=== PATIENT | female | born 1975 | race Caucasian/White ===

== ENCOUNTER 2017-09-30 10:39 | Emergency (ER) | payer MEDICAID, OTHER ==
[~2017-09-30] VITALS: Ht 160 cm; Wt 92.5 kg
[~2017-09-30 10:39] MED LIST: GLU500 PO; LISI10TA2 PO; ORE25 PO
[2017-09-30 10:40] VITALS: BP 131/87
[2017-09-30] MEDS ORDERED: ELA25 PO (10:45)
[2017-09-30] MEDS ORDERED: SUMA100T1 PO (10:45)
[2017-09-30] MEDS ORDERED: TOP25 PO (10:45)
[2017-09-30] MEDS: METOCLOPRAMIDE 10 MG/2 ML INJ VIAL IM ONE (12:28)
[2017-09-30] MEDS: KETOROLAC 30 MG/ML VIAL IM ONE (12:28)
[2017-09-30 12:42] LABS: BILIRUBIN,URINE NEGATIVE (NEGATIVE); BLOOD, URINE NEGATIVE (NEGATIVE); COLOR,URINE YELLOW (YELLOW); LEUKOCYTE ESTERASE ,URINE NEGATIVE (NEGATIVE); NITRITE, URINE NEGATIVE (NEGATIVE); UGLUCOSE NEGATIVE (NEGATIVE)
[2017-09-30 12:46] LABS: APPEARANCE,URINE CLOUDY (CLEAR)
[2017-09-30 13:04] LABS: RBC,URINE NONE SEEN /HPF (0-5); WBC,URINE NONE SEEN /HPF (0-5)
[2017-09-30 13:06] VITALS: BP 124/81
== END 2017-09-30 13:04 | disposition home or self-care (01) ==
LOC: MED 10:39
DX: G43.909 Migraine, unspecified, not intractable, without status migrainosus (principal); N60.12 Diffuse cystic mastopathy of left breast; J45.909 Unspecified asthma, uncomplicated; E11.9 Type 2 diabetes mellitus without complications; I10 Essential (primary) hypertension; Z90.49 Acquired absence of other specified parts of digestive tract; Z79.899 Other long term (current) drug therapy
CPT/HCPCS: 81001; 81025; 96372; 99284; J1885; J2765

== ENCOUNTER 2021-03-28 05:10 | Day surgery (SDC) | payer OTHER, SELFPAY ==
[~2021-03-28] VITALS: Ht 160 cm; Wt 109.8 kg
[~2021-03-28 05:10] MED LIST changes: +AMIT25TA40 PO; +SUMA100T1 PO; +TOP25 PO
[2021-03-28] MEDS ORDERED: DESFLURANE 240 ML BTL INH ONE (08:00)
[2021-03-28] MEDS ORDERED: fentaNYL citrate 0.05 MG/ML VIAL ONE (08:08)
[2021-03-28] MEDS ORDERED: KETOROLAC 30 MG/ML VIAL ONE (08:08)
[2021-03-28] MEDS ORDERED: ONDANSETRON 4 MG/2 ML VIAL ONE (08:08)
[2021-03-28] MEDS ORDERED: PROPOFOL 200 MG/20 ML VIAL IV ONE (08:08)
[2021-03-28] MEDS ORDERED: HYDROmorphone 1 MG/ML AMP IVP PRN (08:50)
== END 2021-03-28 09:45 | disposition home or self-care (01) ==
LOC: MDS 05:10 → MMU 05:10 → MDS 09:45
PROVIDERS: ATTEND Obstetrics & Gynecology
DX: N92.0 Excessive and frequent menstruation with regular cycle (principal); I10 Essential (primary) hypertension; E11.9 Type 2 diabetes mellitus without complications; E78.00 Pure hypercholesterolemia, unspecified; Z96.642 Presence of left artificial hip joint; E66.9 Obesity, unspecified; Z79.84 Long term (current) use of oral hypoglycemic drugs; Z79.899 Other long term (current) drug therapy; Z20.822 Contact with and (suspected) exposure to COVID-19
CPT/HCPCS: 36415; 58563; 82948; 86886; 86900; 86901; 87426; 88305; 93005; J1885; J2405; J2704; J3010

== ENCOUNTER 2021-08-09 15:42 | Emergency (ER) | payer OTHER, SELFPAY ==
[~2021-08-09] VITALS: Ht 162.6 cm; Wt 105.7 kg
[2021-08-09 15:45] VITALS: BP 155/121
[2021-08-09] MEDS ORDERED: KETOROLAC 30 MG/ML VIAL IM ONE (16:20)
[2021-08-09] MEDS ORDERED: HYDROcodone/APAP 10/325 MG 1 TAB TAB PO ONE (16:20)
[2021-08-09] MEDS ORDERED: HYDROmorphone PFS 2 MG/ML SYR IM ONE (17:15)
[2021-08-09] MEDS ORDERED: HYDR-5191 PO (18:30)
[2021-08-09] MEDS ORDERED: IBUP-2213 PO (18:31)
[2021-08-09 18:49] VITALS: BP 155/121
== END 2021-08-09 18:49 | disposition home or self-care (01) ==
LOC: MED 15:42
DX: M25.552 Pain in left hip (principal); G89.29 Other chronic pain; J45.909 Unspecified asthma, uncomplicated; E11.9 Type 2 diabetes mellitus without complications; I10 Essential (primary) hypertension; Z98.890 Other specified postprocedural states; Z79.84 Long term (current) use of oral hypoglycemic drugs; Z79.899 Other long term (current) drug therapy
CPT/HCPCS: 73502; 73552; 73562; 96372; 99284; J1170; J1885

== ENCOUNTER 2021-08-13 10:03 | Emergency (ER) | payer OTHER, SELFPAY ==
[~2021-08-13] VITALS: Ht 160 cm; Wt 107.6 kg
[~2021-08-13 10:03] MED LIST changes: +HYDR-5191 PO; +IBUP-2213 PO
[2021-08-13 10:15] VITALS: BP 156/99
--- NOTE | 2021-08-13 10:18 | NUR ---
pt ambulated to room 1
--- NOTE | 2021-08-13 10:36 | NUR ---
DR. BIRMINGHAM BEDSIDE EVALUATING PT
--- NOTE | 2021-08-13 10:40 | NUR ---
45Y FEMALE BIB SELF DUE TO COLD SYMPTOMS. PER PATIENT SHE STARTED TO EXPERINCE A SORE THROAT AND WET COUGH AROUND 0400 THIS AM. PT STATED SORE THROAT IS 8/10 CURRENTLY. PT DENIES ANY CP, SOB, FEVER/CHILLS, N/V. PT A&OX4. NO SIGNS OF DISTRESS NOTED. BREATH SOUNDS CLEAR PMH: ASTHMA, DM, HTN NKA
--- NOTE | 2021-08-13 10:46 | NUR ---
AGUS BALTAZAR COLLECTED AND HANDED TO [facility] BEDSIDE
--- NOTE | 2021-08-13 11:28 | NUR ---
PT PROVIDED WITH JUICE AND CRACKERS BEDSIDE
--- NOTE | 2021-08-13 12:14 | NUR ---
Patient discharged with v/s stable. Written and verbal after care instructions given and explained. Patient verbalized understanding. Ambulatory with steady gait. All questions addressed prior to discharge. Advised to follow up with PMD.
== END 2021-08-13 12:14 | disposition home or self-care (01) ==
LOC: MED 10:03
DX: B34.9 Viral infection, unspecified (principal); Z20.822 Contact with and (suspected) exposure to COVID-19; I51.9 Heart disease, unspecified; J44.9 Chronic obstructive pulmonary disease, unspecified; E11.9 Type 2 diabetes mellitus without complications; E78.00 Pure hypercholesterolemia, unspecified
CPT/HCPCS: 99283

== ENCOUNTER 2021-12-18 09:49 | Emergency (ER) | payer OTHER ==
[~2021-12-18] VITALS: Ht 165.1 cm; Wt 104.9 kg
[2021-12-18 09:55] VITALS: BP 196/94
--- NOTE | 2021-12-18 10:07 | NUR ---
PT AMB TO BED 2.
--- NOTE | 2021-12-18 10:48 | NUR ---
BIB C/O [facility] [facility] [employer] EARS & C/O LEFT EAR PAIN S/P SWIMMING AT HER HOUSE'S POOL X 4 DAYS. BP 186/94, BLOOD SUGAR 220 AT THIS TIME. PMH: DM, HTN
--- NOTE | 2021-12-18 10:48 | NUR ---
DR. FARRIS AT PT BEDSIDE FOR FURTHER EVALUATION.
[2021-12-18] MEDS ORDERED: HYDROcodone/APAP 5/325 MG 1 TAB TAB PO ONE (10:50)
[2021-12-18] MEDS ORDERED: AMOX-1230 PO (11:05)
[2021-12-18] MEDS ORDERED: OFLO5SOL27 LEFT EAR (11:05)
[2021-12-18] MEDS ORDERED: IBUP-2213 PO (11:08)
[2021-12-18 11:20] VITALS: BP 176/96
--- NOTE | 2021-12-18 11:20 | NUR ---
Patient discharged with v/s stable. Written and verbal after care instructions given and explained. Patient alert, oriented and verbalized understanding of instructions. Ambulatory with steady gait. All questions addressed prior to discharge. ID band removed. Patient advised to follow up with PMD. Rx of FLOXIN OT AMOX given. Patient educated on indication of medication including possible reaction and side effects. Opportunity to ask questions provided and answered.
--- NOTE | 2021-12-18 11:21 | NUR ---
Chart checked and completed. The patient's care was reviewed and supervised by Maria Menjivar RN.
== END 2021-12-18 11:20 | disposition home or self-care (01) ==
LOC: MED 09:49
DX: H66.91 Otitis media, unspecified, right ear (principal); H60.91 Unspecified otitis externa, right ear; H72.91 Unspecified perforation of tympanic membrane, right ear; J45.909 Unspecified asthma, uncomplicated; E11.9 Type 2 diabetes mellitus without complications; I10 Essential (primary) hypertension; Z79.84 Long term (current) use of oral hypoglycemic drugs; Z79.899 Other long term (current) drug therapy
CPT/HCPCS: 99283

== ENCOUNTER 2021-12-20 10:14 | Emergency (ER) | payer OTHER ==
[~2021-12-20] VITALS: Ht 165.1 cm; Wt 106.3 kg
[~2021-12-20 10:14] MED LIST changes: +AMOX-1230 PO; +OFLO5SOL27 LEFT EAR
[2021-12-20 10:49] VITALS: BP 176/103
[2021-12-20] MEDS ORDERED: ACET-8386 PO (12:59)
--- NOTE | 2021-12-20 14:51 | NUR ---
PT UP FOR DC, LEFT WITHOUT PAPERWORK. RX OF NORCO SENT TO PHARMACY.
== END 2021-12-20 14:51 | disposition home or self-care (01) ==
LOC: MED 10:14
DX: H60.92 Unspecified otitis externa, left ear (principal); J45.909 Unspecified asthma, uncomplicated; I10 Essential (primary) hypertension; E78.5 Hyperlipidemia, unspecified; E11.9 Type 2 diabetes mellitus without complications; Z79.4 Long term (current) use of insulin; Z79.899 Other long term (current) drug therapy
CPT/HCPCS: 99281